=== PATIENT | male | born 1965 | race African-American/Black ===

== ENCOUNTER 2018-07-29 20:40 | Emergency (ER) | payer BC ==
[2018-07-29 20:52] VITALS: BP 171/79
--- NOTE | 2018-07-29 21:13 | UC ---
Hand/Wrist HPI - HPI Summary HPI Summary: 53 yo male s/p slip and fall yesterday injuring right wrist>>right thumb He is right handed - History Of Current Complaint Chief Complaint: UCUpperExtremity Stated Complaint: R WRIST, THUMB INJURY Time Seen by Provider: 07/29/18 20:46 Hx Obtained From: Patient Onset/Duration: Sudden Onset Severity Initially: Moderate Severity Currently: Moderate Pain Intensity: 8 Pain Scale Used: 0-10 Numeric Character Of Pain: Dull, Aching Aggravating Factor(s): Movement, Lifting Alleviating Factor(s): Rest Associated Signs And Symptoms: Positive: Negative Related History: Dominant Hand Right Hands: 1 - pain/swelling/tenderness 2 - mild pain - Allergies/Home Medications Allergies/Adverse Reactions: Allergies Allergy/AdvReac Type Severity Reaction Status Date / Time No Known Allergies Allergy Verified 07/29/18 20:52 Home Medications: Home Medications Terazosin HCl 5 mg PO BEDTIME 07/29/18 [History Confirmed 07/29/18] PMH/Surg Hx/FS Hx/Imm Hx Previously Healthy: Yes Cardiovascular History: Hypertension - on no meds - Surgical History Surgical History: Yes Surgery Procedure, Year, and Place: left knee 2017 - Family History Known Family History: Positive: Cardiac Disease, Hypertension - Social History Alcohol Use: Occasionally Alcohol Amount: wine Substance Use Type: None Smoking Status (MU): Never Smoked Tobacco Review of Systems All Other Systems Reviewed And Are Negative: Yes Constitutional: Positive: Negative Skin: Positive: Negative Eyes: Positive: Negative ENT: Positive: Negative Respiratory: Positive: Negative Cardiovascular: Positive: Negative Gastrointestinal: Positive: Negative Genitourinary: Positive: Negative Motor: Positive: Negative Neurovascular: Positive: Negative Musculoskeletal: Positive: Arthralgia Neurological: Positive: Negative Psychological: Positive: Negative Physical Exam Triage Information Reviewed: Yes Appearance: Well-Appearing, No Pain Distress, Well-Nourished Vital Signs: Initial Vital Signs Temp 98.2 F 07/29/18 20:45 Pulse 90 07/29/18 20:45 Resp 18 07/29/18 20:45 BP 171/79 07/29/18 20:45 Pulse Ox 99 07/29/18 20:45 Vital Signs Reviewed: Yes Eyes: Positive: Conjunctiva Clear ENT: Positive: Hearing grossly normal. Negative: Nasal congestion, Nasal drainage, Trismus, Muffled voice Neck: Positive: Supple, Nontender Respiratory: Positive: Lungs clear, Normal breath sounds, No respiratory distress, No accessory muscle use Cardiovascular: Positive: RRR, No Murmur Musculoskeletal Exam: Other - see image Musculoskeletal: Positive: ROM Limited @ - right wrist Diagnostics - Radiology No standard instances Radiology Interpretation Completed By: ED Physician Summary of Radiographic Findings: no fx noted/ulnar minus variance Hand/Wrist Course/Dx - Differential Dx/Diagnosis Provider Diagnosis: Right wrist sprain, TFCC (triangular fibrocartilage complex) injury Discharge - Sign-Out/Discharge Documenting (check all that apply): Patient Departure All imaging exams completed and their final reports reviewed: No - Discharge Plan Condition: Stable Disposition: HOME Patient Education Materials: Splint Care (ED), Wrist Sprain (ED) Referrals: Royal Keys MD [Primary Care Provider] - 2 Weeks (recheck BP in 1-2 weeks) Additional Instructions: elevate ice see your orthopedist about your wrist I saw no fracture (official XR reading is pending) I am concerned you may have injured/torn some cartilage (your Triangular Fibro Cartilage Complex or TFCC) You bp need to be followed by your meat packager - Billing Disposition and Condition Condition: STABLE Disposition: Home
--- NOTE | 2018-07-30 09:56 | UC ---
- Progress Note Progress Note: Radiologist reading from July 29, 2018 of the right wrist is read as no fracture. The provider from the same date also read it as no fracture and did recommend follow-up with orthopedics. Therefore there is no discrepancy. Course/Dx - Diagnoses Provider Diagnoses: Right wrist sprain, TFCC (triangular fibrocartilage complex) injury Discharge - Sign-Out/Discharge Documenting (check all that apply): Patient Departure All imaging exams completed and their final reports reviewed: Yes - Discharge Plan Condition: Stable Disposition: HOME Patient Education Materials: Splint Care (ED), Wrist Sprain (ED) Referrals: Royal Keys MD [Primary Care Provider] - 2 Weeks (recheck BP in 1-2 weeks) Additional Instructions: elevate ice see your orthopedist about your wrist I saw no fracture (official XR reading is pending) I am concerned you may have injured/torn some cartilage (your Triangular Fibro Cartilage Complex or TFCC) You bp need to be followed by your adult care provider - Billing Disposition and Condition Condition: STABLE Disposition: Home
== END 2018-07-29 21:28 | disposition home or self-care (01) ==
LOC: UCEAST 20:40
DX: S63.501A Unspecified sprain of right wrist, initial encounter (principal); W01.0XXA Fall on same level from slipping, tripping and stumbling without subsequent striking against object, initial encounter; Y92.9 Unspecified place or not applicable; M24 Other specific joint derangements
CPT/HCPCS: 99212; G0463